=== PATIENT | male | born 1990 | race Caucasian/White ===

== ENCOUNTER 2017-07-17 11:14 | Emergency (ER) | payer SELFPAY ==
[~2017-07-17] VITALS: Ht 175.3 cm; Wt 86.2 kg
[2017-07-17] MEDS ORDERED: ASPirin 81 mg TAB PO ONE (11:45)
[2017-07-17 12:02] LABS: Basophils # (auto) 0.2 uL; Basophils % (auto) 2.4 % (0.0-2.0); Eosinophils # (auto) 0.1 uL; Eosinophils % (auto) 1.4 % (0.0-7.0); Hematocrit 46.1 % (41.0-53.0); Hemoglobin 15.5 g/dL (13.5-17.5); Lymphocytes # (auto) 0.9 uL; Lymphocytes % (auto) 12.9 % (10.0-50.0); Mean Corpuscular Hemoglobin 30.7 pg (28.0-32.0); Mean Corpuscular Hgb Conc. 33.7 g/dL (32.0-36.0); Mean Corpuscular Volume 91.1 fL (80.0-100.0); Monocytes # (auto) 0.5 uL; Monocytes % (auto) 6.6 % (0.0-12.0); Neutrophils # (auto) 5.5 uL; Neutrophils % (auto) 76.7 % (37.0-80.0); Platelet Count (auto) 292 10^3/uL (140-450); Red Blood Cells 5.06 10^6/uL (4.5-5.90); Red Cell Distribution Width 13.5 % (11.8-14.3); White Blood Cell 7.2 10^3/uL (4.4-10.8)
[2017-07-17 12:21] LABS: Alanine Aminotransferase 25 U/L (16-61); Albumin 3.8 g/dL (3.4-5.0); Alkaline Phosphatase 94 U/L (45-117); Anion Gap 7 (5-15); Aspartate Aminotransferase 13 U/L (15-37); BUN/Creatinine Ratio 15.9; Bilirubin, Total 0.4 mg/dL (0.2-1.0); Blood Urea Nitrogen 13 mg/dL (7-18); Calcium 8.8 mg/dL (8.5-10.1); Carbon Dioxide 25 mmol/L (21-32); Chloride 109 mmol/L (98-107); GFR African American 144 mL/min; GFR Non-African American 119 mL/min; Glucose 104 mg/dL (74-106); Potassium 4.4 mmol/L (3.5-5.1); Sodium 141 mmol/L (136-145); Total Protein 7.4 g/dL (6.4-8.2)
[2017-07-17 13:37] VITALS: BP 131/77
== END 2017-07-17 12:50 | disposition home or self-care (01) ==
LOC: ER 11:19
DX: R07.89 Other chest pain (principal); F12.10 Cannabis abuse, uncomplicated; F17.210 Nicotine dependence, cigarettes, uncomplicated
CPT/HCPCS: 36415; 71046; 80053; 84484; 85025; 93005; 99285; J7030

== ENCOUNTER 2018-03-18 14:17 | Emergency (ER) | payer MEDICAID, OTHER ==
[~2018-03-18] VITALS: Ht 175.3 cm; Wt 90.7 kg
[2018-03-18 15:36] VITALS: BP 147/79
== END 2018-03-18 16:29 | disposition home or self-care (01) ==
LOC: ER 14:23
DX: B35.3 Tinea pedis (principal); F17.210 Nicotine dependence, cigarettes, uncomplicated; F12.10 Cannabis abuse, uncomplicated

== ENCOUNTER 2018-07-02 07:01 | Emergency (ER) | payer OTHER ==
[~2018-07-02] VITALS: Ht 175.3 cm; Wt 88.5 kg
[2018-07-02 07:19] VITALS: BP 140/85
[2018-07-02] MEDS: methylPREDNISolone SOD SUCC 125 MG/2 ML VL IM ONE (08:00)
[2018-07-02] MEDS: IPRATROPIUM BROM 0.5 MG/2.5ML INH SOL NEB ONE (08:23)
[2018-07-02] MEDS: ALBUTEROL SULF 2.5 MG/0.5ML(0.5%) NEB SOLN NEB ONE (08:23)
== END 2018-07-02 09:18 | disposition home or self-care (01) ==
LOC: ER 07:02
DX: R05 Cough (principal); K59.00 Constipation, unspecified; R51 Headache; F17.210 Nicotine dependence, cigarettes, uncomplicated; F12.10 Cannabis abuse, uncomplicated
CPT/HCPCS: 71046; 94640; 96372; 99283; J2930; J7611; J7644